=== PATIENT | female | born 1985 | race American Indian/Alaskan Native ===

== ENCOUNTER 2020-08-07 09:35 | Day surgery (SDC) | payer BC ==
--- NOTE | 2020-08-07 07:35 | Anesthesia Day of Surgery ---
Anesthesia Day of Surgery - Day of Surgery Patient Examined: Yes Patient H&P Reviewed: Yes Patient is NPO: Yes
--- NOTE | 2020-08-07 07:35 | Anesthesia Consultation ---
Anesthesia Consult and Med Hx Date of service: 08/07/20 - Airway Anesthetic Teeth Evaluation: Good ROM Head & Neck: Adequate Mental/Hyoid Distance: Adequate Mallampati Class: Class II Intubation Access Assessment: Probably Good - Pulmonary Exam CTA: Yes - Cardiac Exam Cardiac Exam: RRR - Pre-Operative Health Status ASA Pre-Surgery Classification: ASA1 Proposed Anesthetic Plan: General - Pulmonary Hx Smoking: No Hx Respiratory Symptoms: No - Cardiovascular System Hx Hypertension: No - Central Nervous System CVA: No - Gastrointestinal Hx Gastroesophageal Reflux Disease: Yes (daily omeprazole; asymptomatic today) - Endocrine Hx Renal Disease: No Hx Liver Disease: No Hx Insulin Dependent Diabetes: No Hx Non-Insulin Dependent Diabetes: No Hx Thyroid Disease: No - Other Systems Hx Obesity: No
--- NOTE | 2020-08-07 08:50 | Short Stay Summary ---
Short Stay Documentation Date of service: 08/07/20 - History H&P: obtained from office - Allergies and Medications Current Medications: Allergies hydrocodone Allergy (Verified 07/31/20 16:56) Itching latex Allergy (Verified 07/31/20 16:56) Itching Home Medications Medication Instructions Recorded Confirmed Last Taken Type Omeprazole 40 mg PO DAILY 07/31/20 08/07/20 08/06/20 History Active Medications Cefazolin Sodium (Cefazolin/Sterile Water 2 Gm/20 Ml Syringe) 2 gm IV PREOP NR Stop: 08/07/20 23:59 Fentanyl (Fentanyl 100 Mcg/2 Ml Inj) 50 mcg IV Q5MIN PRN PRN Reason: Pain , Severe (7-10) Stop: 08/07/20 18:00 Lactated Ringer's (Lactated Ringers) 1,000 mls @ 100 mls/hr IV DIRECT KATHLEEN Stop: 08/07/20 23:59 Last Admin: 08/07/20 06:50 Dose: 100 mls/hr Documented by: Midazolam HCl (Midazolam 2 Mg/2 Ml Inj) 2 mg IV PREOP NR Stop: 08/07/20 21:00 Last Admin: 08/07/20 07:18 Dose: 2 mg Documented by: Ondansetron HCl (Ondansetron 4 Mg/2 Ml Inj) 4 mg IV ONCE PRN PRN Reason: Nausea And Vomiting Stop: 08/07/20 17:00 - Brief post op/procedure progress note Date of procedure: 08/07/20 Pre-op diagnosis: uti Post-op diagnosis: other (left ureteral stricture) Procedure: cysto, rpg, left ureteroscopy, stent with internal string Anesthesia: SUELLEN Surgeon: BRIAN NAVARRO Condition: stable - Hospital course Hospital course: ultram, dilaudid, macrobid on chart - Disposition Condition at discharge: Stable Disposition: DC-01 TO HOME OR SELFCARE Short Stay Discharge Plan Follow up with: REBECCA WEST MD [Primary Care Provider] - 7 Days
[2020-08-07] MEDS: fentaNYL 100 MCG/2 ML INJ IV PRN ×2 (09:15→09:25)
[~2020-08-07 09:35] MED LIST: BACTERIOSTATIC SODIUM CHLORIDE 0.9% 30 ML VIAL INFILTRATI ONE; GLYCOPYRROLATE 0.4 MG/2 ML INJ ONE; IOHEXOL 300 MG/ML 50ML IV ONE; LACTATED RINGERS 1,000 ML IV SCH; LIDOCAINE PF 100 MG/5 ML (CARDIAC SYRINGE) IV ONE; MIDAZOLAM 2 MG/2 ML INJ IV NR; ONDANSETRON 4 MG/2 ML INJ IV PRN; ONDANSETRON 4 MG/2 ML INJ ONE; PHENYLEPHRINE/NS 1,000 MCG/10 ML SYRINGE (OR USE) IV ONE; ceFAZolin/STERILE WATER 2 GM/20 ML SYRINGE IV NR; dexAMETHasone 20 MG/5 ML VIAL ONE; fentaNYL 100 MCG/2 ML INJ ONE; propofoL 200 MG/20 ML VIAL IV ONE
--- NOTE | 2020-08-07 10:14 | Post Anesthesia Evaluation ---
- Post Anesthesia Evaluation Patient Participated: Yes Airway Patent: Yes Stable Respiratory Function: Yes Nausea/Vomiting: No Temp > 96.8F: Yes Pain Manageable: Yes Adequeate Hydration: Yes Anesthesia Complications: No
[2020-08-07 10:17] VITALS: BP 124/63
--- NOTE | 2020-08-07 10:22 | Operative Report ---
DATE OF SURGERY: 08/07/2020 PREOPERATIVE DIAGNOSIS: Recurrent urinary tract infection. POSTOPERATIVE DIAGNOSES: Recurrent urinary tract infection, left distal ureteral stricture. PROCEDURE PERFORMED: Cystoscopy, bilateral retrograde pyelograms, left balloon dilatation of left ureter, left ureteroscopy, double-J stent with a short internal string (6-Filipino 24 cm). SURGEON: Dr. Thomas. ANESTHESIA: General. ESTIMATED BLOOD LOSS: Minimal. FLUIDS: Crystalloid. COMPLICATIONS: No complications. INDICATIONS: This is a 35-year-old female presented with recurrent urinary tract infections. She was seen by Dr. Kecia Hernandez in the past. She also has a history of left ovarian cyst. We discussed options. She agreed to proceed with surgical intervention. She has some mild hydronephrosis on CT. DESCRIPTION OF PROCEDURE: The patient was taken to the operative suite, placed in a supine position. After adequate general anesthesia, placed in the dorsal lithotomy position, prepped and draped in a sterile fashion. Pancystourethroscopy was performed with a 22-Filipino Storz cystoscope. No acute bladder pathology. No tumors or stones were noted. Bilateral retrograde pyelograms were obtained with an 8-Filipino [place] catheter and 8 mL of contrast. No filling defects or obstruction on the right. Left side showed a distal ureteral stricture approximately 3-4 cm proximal to the left ureteral orifice. A 0.035 Glidewire was placed without difficulty in the left ureter. Attempts to place a second wire was unsuccessful. At that point, balloon dilatation was performed with a 4-cm balloon. Rigid ureteroscopy I was then able to advance, a second wire passed the strictured area and then advanced the scope into the proximal ureter. No obvious stone could be appreciated just dense scar tissue. A 6-Filipino 24 cm double-J stent with an internal string was left indwelling, we will leave it for several weeks. Bladder was drained. She was extubated and taken to recovery room. She will go home on Ultram, Dilaudid and Macrobid. TID: [id number] RECEIPT: [id number] [facility]/STD
[2020-08-07] MEDS ORDERED: traMADol 50 MG TAB PO PRN (10:30)
--- NOTE | 2020-08-07 10:49 | Fluoroscopy Report ---
INTRAOPERATIVE FLUOROSCOPY: RETROGRADE UROGRAPHY INDICATION / CLINICAL INFORMATION: UTI, HYDRONEPHROSIS. TECHNIQUE: Intraoperative spot images were obtained during the procedure. FINDINGS: Images show bilateral retrograde urography and placement of left ureteral stent. 12 cc Omnipaque 300 utilized. See operative/procedure note by performing physician for full details. Fluoroscopy Time: 1.2 minutes. Fluoroscopy Images: 7. Signer Name: Ken Olvera MD Signed: 08/07/2020 10:44 AM Workstation Name: [id number]
== END 2020-08-07 09:36 | disposition home or self-care (01) ==
LOC: OR 09:35
PROVIDERS: ATTEND Urology
DX: N39.0 Urinary tract infection, site not specified (principal); N13.1 Hydronephrosis with ureteral stricture, not elsewhere classified; K21.9 Gastro-esophageal reflux disease without esophagitis; Z79.899 Other long term (current) drug therapy; Z91.040 Latex allergy status; Z88.8 Allergy status to other drugs, medicaments and biological substances; Z71.89 Other specified counseling; Z98.890 Other specified postprocedural states
CPT/HCPCS: 52332; 52344; 74420; 74485; 81025; 87086; C1726; C1758; C1769; C2617; J0690; J1100; J2001; J2250; J2370; J2405; J2704; J3010; J7120; Q9967